=== PATIENT | female | born 1965 | race Caucasian/White ===

== ENCOUNTER 2020-07-11 08:27 | Day surgery (SDC) | payer OTHER ==
[2020-07-11] MEDS ORDERED: Propofol 200 MG/20 ML SDV IV ONE (08:28)
[2020-07-11] MEDS ORDERED: Lidocaine 1% PF 2 ML SDV INJECT ONE (08:28)
[2020-07-11] MEDS ORDERED: Lactated Ringers 1,000 ML IV SCH (08:30)
[2020-07-11] MEDS ORDERED: Sodium Chloride 0.9% 10 ML Syringe FLUSH PRN (08:30)
--- NOTE | 2020-07-11 10:04 | PCM.OPNOTE ---
- General Post-Op/Procedure Note Date of Surgery/Procedure: 07/11/20 (c) Operative Procedure(s): c scope Findings: scattered diverticuli transverse to sigmoid Pre Op Diagnosis: colon cancer screening Post-Op Diagnosis: scattered diverticuli transverse to sigmoid Anesthesia Technique: SCOTTY Primary Surgeon: Sony Roberson Anesthesia Provider: Aaron West Pathology: none submitted Complications: None Condition: Good Free Text/Narrative:: see dictation #[id number]
--- NOTE | 2020-07-11 10:55 | OR ---
DATE OF OPERATION: 07/11/2020 SURGEON: Sony Roberson MD PROCEDURE PERFORMED: Colonoscopy. PREOPERATIVE DIAGNOSIS: Colon cancer screening. POSTOPERATIVE DIAGNOSIS: Scattered diverticula of the colon. INDICATIONS FOR PROCEDURE: This is a 54-year-old white female referred for her initial screening colonoscopy. She was offered and accepted same. DESCRIPTION OF OPERATION: After an excellent IV sedation was administered, digital rectal exam was performed. No marked abnormality was noted. Flexible colonoscope was inserted and advanced to the cecum. The prep was excellent. After identifying the cecum by usual anatomic markers, the scope was slowly withdrawn. The following findings were noted. Ascending colon, unremarkable. Transverse colon, occasional diverticula noted. Descending colon, unremarkable, except for occasional diverticula. Sigmoid, occasional diverticula. Otherwise, no other mucosal abnormalities. Rectum and anus, unremarkable. The patient tolerated the procedure well, was taken to recovery room in good condition. RECOMMENDATIONS: Repeat colonoscopy in 10 years, sooner on a p.r.n. basis. /[id number] /TERI
== END 2020-07-11 10:49 | disposition home or self-care (01) ==
LOC: FB.SDS 08:27
PROVIDERS: ATTEND Surgery
DX: Z12.11 Encounter for screening for malignant neoplasm of colon (principal); K57.30 Diverticulosis of large intestine without perforation or abscess without bleeding; I10 Essential (primary) hypertension; G47.33 Obstructive sleep apnea (adult) (pediatric); E66.9 Obesity, unspecified; Z68.41 Body mass index [BMI] 40.0-44.9, adult; Z79.899 Other long term (current) drug therapy; Z91.09 Other allergy status, other than to drugs and biological substances; Z98.890 Other specified postprocedural states
CPT/HCPCS: G0121; J2704; J7120; 00812-QZ

== ENCOUNTER 2021-06-27 07:20 | Day surgery (SDC) | payer OTHER ==
[~2021-06-27 07:20] MED LIST: Sodium Chloride 0.9% 10 ML Syringe FLUSH PRN
[2021-06-27] MEDS ORDERED: Propofol 200 MG/20 ML SDV IV ONE (07:21)
[2021-06-27] MEDS ORDERED: Lidocaine 2% Viscous Solution 15 ML UD PO ONE (07:21)
[2021-06-27] MEDS: Lactated Ringers 1,000 ML IV SCH (07:56)
[2021-06-27] MEDS: Simethicone Drops 40 MG/0.6 ML 30 ML Bottle ONE (09:00)
== END 2021-06-27 10:24 | disposition home or self-care (01) ==
LOC: FB.SDS 07:20
PROVIDERS: ATTEND Surgery
DX: K57.30 Diverticulosis of large intestine without perforation or abscess without bleeding (principal); K29.50 Unspecified chronic gastritis without bleeding; D64.9 Anemia, unspecified; K29.80 Duodenitis without bleeding; K44.9 Diaphragmatic hernia without obstruction or gangrene; I10 Essential (primary) hypertension; E66.9 Obesity, unspecified; G47.30 Sleep apnea, unspecified; K21.9 Gastro-esophageal reflux disease without esophagitis; Z98.890 Other specified postprocedural states; Z79.899 Other long term (current) drug therapy; Z68.39 Body mass index [BMI] 39.0-39.9, adult; Z80.0 Family history of malignant neoplasm of digestive organs
CPT/HCPCS: 00813-QZ; 88300; 88305; 88342; A9270-GY; J2704; J7120